=== PATIENT | female | born 1985 | race Asian ===

== ENCOUNTER 2021-03-16 07:36 | Inpatient (IN) | payer BC, SELFPAY ==
[~2021-03-16] VITALS: Ht 154.9 cm; Wt 58.5 kg
[2021-03-16 07:40] VITALS: BP_SYST 116
[2021-03-16] MEDS ORDERED: IPRATROPIUM BROM 0.5 MG/2.5 ML VIAL.NEB (ATROVENT) INH ONE ×2 (07:44→08:15)
[2021-03-16] MEDS ORDERED: MAGNESIUM SULFATE 1 GM/2 ML VIAL ONE (07:44)
--- NOTE | 2021-03-16 07:45 | NUR ---
Placed in room 7 . Placed on environmental inspector, blood pressure machine and pulse oximeter. To gown for exam. Side rails up. Report given to ANDRIY DEL VALLE.
[2021-03-16] MEDS ORDERED: methylPREDNISolone SOD SUCC/PF 62.5 MG/ML VIAL ONE (07:50)
--- NOTE | 2021-03-16 07:50 | NUR ---
ER at bedside examining patient.
[2021-03-16] MEDS ORDERED: ALBUTEROL SULFATE 0.083% 2.5 MG/3 ML VIAL.NEB INH ONE (08:15)
[2021-03-16] MEDS ORDERED: METHYLPREDNISOLONE SOD SUCC 40 MG/ML VIAL IVP ONE (08:15)
[2021-03-16] MEDS ORDERED: MAGNESIUM SULFATE 50 ML IV ONE (08:15)
--- NOTE | 2021-03-16 08:30 | NUR ---
LATE ENTRY PT COMES TO ER WITH DYSPNEA SINCE 0700 THIS AM, +ACCESSORY MUSCLE USE, TACHYPNIC AT 48 BREATHS/MIN. LS-WHEEZES WITH HISTORY OF ASTHMA AT 60% ON RA. PT PALE, SLIGHTLY DIAPHORETIC, IMMEDIATELY SL INSERTED-DR BONILLA AT BEDSIDE. AT BEDSIDE. STATES SHE STARTED FEELING SOB UPON WAKING UP, DID NOT GIVE HERSELF ANY BREATHING TREATMENTS PRIOR TO COMING. PT FULLY VACCINATED.
--- NOTE | 2021-03-16 09:20 | NUR ---
Notified ED Admitting regarding Dr. Garcia's request for admission/transfer. ED Admitting will contact insurance business analyst regarding this matter. per facesheet: [facility] ([facility])[3]
[2021-03-16 09:21] LABS: BASOPHILS # (AUTO) 0.1 K/uL (0.0-0.2); BASOPHILS % (AUTO) 0.4 % (0.0-2.0); EOSINOPHILS # (AUTO) 0.6 K/uL (0.0-0.4); EOSINOPHILS % (AUTO) 4.9 % (0.0-4.0); HEMATOCRIT 41.2 % (36-48); HEMOGLOBIN 13.4 g/dL (12.0-16.0); LYMPHOCYTES # (AUTO) 2.7 K/uL (1.0-5.5); LYMPHOCYTES % (AUTO) 21.9 % (20.5-51.5); MEAN CORPUSCULAR HEMOGLOBIN 30 pg (27-31); MEAN CORPUSCULAR HGB CONC 33 % (32-36); MEAN CORPUSCULAR VOLUME 90 fL (79.0-98.0); MONOCYTES # (AUTO) 0.4 K/uL (0.0-1.0); MONOCYTES % (AUTO) 3.3 % (1.7-9.3); NEUTROPHILS # (AUTO) 8.5 K/uL (1.8-7.7); NEUTROPHILS % (AUTO) 69.5 % (40.0-70.0); PLATELET COUNT (AUTO) 281 K/uL (130-430); RED BLOOD CELL COUNT(AUTO) 4.56 MIL/uL (4.2-6.2); RED CELL DISTRIBUTION WIDTH 13.1 % (9.0-15.0); WHITE BLOOD COUNT (AUTO) 12.2 K/uL (4.8-10.8)
[2021-03-16 09:28] LABS: ALBUMIN 3.4 g/dL (3.4-4.8); CREATININE 0.51 mg/dL (0.55-1.30); POTASSIUM 3.1 mmol/L (3.5-5.1); TOTAL BILIRUBIN 0.1 mg/dL (0.0-1.0)
--- NOTE | 2021-03-16 09:32 | NUR ---
PT LAYING IN BED, REPORTS FEELING BETTER. RESP EVEN AND UNLABORED, ON 02-@3L VIA NC AT 99%. VSS, WAITING FOR ER DISPOSITION.
--- NOTE | 2021-03-16 10:59 | NUR ---
ED Admitting did not call case manger so Dr. Garcia spoke to Christina, insurance collector, regarding this mater and Christina gave verbal auth for admission per Dr. Garcia.
--- NOTE | 2021-03-16 11:10 | NUR ---
DR ABDUL IN ROOM FOR EXAM , PT ADMITTED TO TELE.
[2021-03-16] MEDS ORDERED: ACETAMINOPHEN 325 MG TABLET PO PRN (11:15)
[2021-03-16] MEDS: D5/0.45 NS 1,000 ML IV SCH ×2 (11:15→23:17)
[2021-03-16] MEDS ORDERED: ONDANSETRON HCL 4 MG/2 ML VIAL IVP PRN (11:15)
--- NOTE | 2021-03-16 14:25 | NUR ---
PT HAD LUNCH BROUGHT IN BY , TOLERATED WELL.NO DIFFICUTY IN BREATHING. ON VIA NC @98%
[2021-03-16] MEDS: ALBUTEROL SULFATE 0.083% 2.5 MG/3 ML VIAL.NEB INH SCH (14:51)
[2021-03-16] MEDS: IPRATROPIUM BROM 0.5 MG/2.5 ML VIAL.NEB (ATROVENT) INH SCH (14:51)
--- NOTE | 2021-03-16 15:29 | NUR ---
NO ACUTE CHANGE IN CONDITION, PT USING CELL PHONE, CONVERSING WITH . VSS.
--- NOTE | 2021-03-16 15:45 | NUR ---
Patient will be admitted to care of DR ABDUL. Admitted to unit. Will go to room . Belongings list completed. Complete and up to date summary report printed. SBAR report to be given at bedside with opportunity for questions.
--- NOTE | 2021-03-16 15:50 | NUR ---
ADMISSION NOTE Received patient from ER via gurney. Patient admitted with diagnosis of . Patient is awake, alert, oriented X 4. Patient oriented to hospital room, call light, toileting, pain management and safety-teach back done. Patient informed that Savi will be her nurse and that their room number is 104A. Personal belongings checked and Belongings List documented. Call light within reach.
[2021-03-16 15:57] VITALS: BP_SYST 143
--- NOTE | 2021-03-16 18:45 | NUR ---
CLOSING NOTE Patient AxOx4 currently eating dinner in bed and respirations remain even and non-labored on 2 L NC. IV is patent and infusing fluids as ordered. Bed locked in lowest position and call light is within reach. Will endorse to night stocker RN.
[2021-03-16 21:00] VITALS: BP_SYST 135
[2021-03-16] MEDS ORDERED: PANTOPRAZOLE SODIUM 40 MG/VIAL (PROTONIX) IVP ONE (22:45)
[2021-03-16] MEDS: MONTELUKAST 10 MG TABLET PO SCH (22:47)
[2021-03-16] MEDS ORDERED: cefTRIAXone 1 GM IVPB PREMIX 50 ML IV ONE (23:13)
[2021-03-16] MEDS: cefTRIAXone 1 GM in D5W 50 ML IV SCH (23:16)
--- NOTE | 2021-03-17 | NUR ---
SOLU MEDROL 40 MG IVP was given at 2400 , it did not save to apr .
[2021-03-17] MEDS: ALBUTEROL SULFATE 0.083% 2.5 MG/3 ML VIAL.NEB INH SCH ×8 (00:53→23:28)
[2021-03-17] MEDS: IPRATROPIUM BROM 0.5 MG/2.5 ML VIAL.NEB (ATROVENT) INH SCH ×8 (00:54→23:28)
[2021-03-17 02:00] VITALS: BP_SYST 129
--- NOTE | 2021-03-17 02:35 | NUR ---
TYLENOL 650 MG po given for general pain & helpful / .
[2021-03-17] MEDS: METHYLPREDNISOLONE SOD SUCC 40 MG/ML VIAL IVP SCH ×2 (06:10→13:57)
[2021-03-17] MEDS: D5/0.45 NS 1,000 ML IV SCH (07:15)
[2021-03-17 08:38] LABS: HEMATOCRIT 38.6 % (36-48); HEMOGLOBIN 12.7 g/dL (12.0-16.0); LYMPHOCYTES # (AUTO) 0.8 K/uL (1.0-5.5); LYMPHOCYTES % (AUTO) 4.5 % (20.5-51.5); MEAN CORPUSCULAR HEMOGLOBIN 30 pg (27-31); MEAN CORPUSCULAR HGB CONC 33 % (32-36); MEAN CORPUSCULAR VOLUME 91 fL (79.0-98.0); MONOCYTES # (AUTO) 0.2 K/uL (0.0-1.0); MONOCYTES % (AUTO) 1.3 % (1.7-9.3); NEUTROPHILS # (AUTO) 15.8 K/uL (1.8-7.7); NEUTROPHILS % (AUTO) 94.2 % (40.0-70.0); PLATELET COUNT (AUTO) 316 K/uL (130-430); RED BLOOD CELL COUNT(AUTO) 4.25 MIL/uL (4.2-6.2); RED CELL DISTRIBUTION WIDTH 12.9 % (9.0-15.0)
[2021-03-17 08:44] LABS: WHITE BLOOD COUNT (AUTO) 16.8 K/uL (4.8-10.8)
[2021-03-17 08:54] LABS: ALANINE AMINOTRANSFERASE 14 U/L (12-78); ALBUMIN 3.4 g/dL (3.4-4.8); ANION GAP 10 (5-15); ASPARTATE AMINOTRANSFERASE 7 U/L (10-37); CALCIUM 8.4 mg/dL (8.4-11.0); CHLORIDE 106 mmol/L (98-107); CREATININE 0.49 mg/dL (0.55-1.30); GLUCOSE 142 mg/dL (70-99); PHOSPHORUS 2.6 mg/dL (2.7-4.5); POTASSIUM 4.2 mmol/L (3.5-5.1); SODIUM SERUM 143 mmol/L (136-145); TOTAL BILIRUBIN < 0.1 mg/dL (0.0-1.0); UREA NITROGEN, BLOOD 6 mg/dL (8-21)
[2021-03-17] MEDS: PANTOPRAZOLE SODIUM 40 MG/VIAL (PROTONIX) IVP SCH (08:57)
[2021-03-17 09:01] VITALS: BP_SYST 136
[2021-03-17 09:21] LABS: GFR AFRICAN AMERICAN 186 mL/min (>90)
[2021-03-17] MEDS ORDERED: NA PHOS 15 MM in NS 250 ML IV ONE (09:45)
--- NOTE | 2021-03-17 13:00 | NUR ---
BEDSIDE REPORT RECEIVED FROM KATARINA ASHRAF. PT IS AWAKE, ALERT, AND ORIENTED X4, VS STABLE, IV FLUIDS INFUSING, NO ACUTE DISTRESS, INDEPENDENT AND AMBULATORY. ASSUMING CARE FOR PT.
[2021-03-17 16:22] VITALS: BP_SYST 117
[2021-03-17] MEDS: MONTELUKAST 10 MG TABLET PO SCH (17:15)
--- NOTE | 2021-03-17 19:30 | NUR ---
PT REMAINS STABLE, NO ACUTE DISTRESS, SL, AMBULATORY. NO SIGNIFICANT CHANGES NOTED. REPORT GIVEN TO GREGORIA ASHRAF.
[2021-03-17] MEDS: cefTRIAXone 1 GM in D5W 50 ML IV SCH (22:32)
[2021-03-18] MEDS: ALBUTEROL SULFATE 0.083% 2.5 MG/3 ML VIAL.NEB INH SCH ×4 (03:47→15:00)
[2021-03-18] MEDS: IPRATROPIUM BROM 0.5 MG/2.5 ML VIAL.NEB (ATROVENT) INH SCH ×4 (03:47→15:00)
[2021-03-18 08:10] LABS: BASOPHILS # (AUTO) 0.1 K/uL (0.0-0.2); BASOPHILS % (AUTO) 0.3 % (0.0-2.0); EOSINOPHILS % (AUTO) 0.1 % (0.0-4.0); HEMATOCRIT 38.6 % (36-48); HEMOGLOBIN 12.7 g/dL (12.0-16.0); LYMPHOCYTES % (AUTO) 22.3 % (20.5-51.5); MEAN CORPUSCULAR HEMOGLOBIN 30 pg (27-31); MEAN CORPUSCULAR HGB CONC 33 % (32-36); MEAN CORPUSCULAR VOLUME 90 fL (79.0-98.0); MONOCYTES # (AUTO) 0.9 K/uL (0.0-1.0); MONOCYTES % (AUTO) 4.8 % (1.7-9.3); NEUTROPHILS # (AUTO) 13.1 K/uL (1.8-7.7); NEUTROPHILS % (AUTO) 72.5 % (40.0-70.0); PLATELET COUNT (AUTO) 329 K/uL (130-430); RED BLOOD CELL COUNT(AUTO) 4.27 MIL/uL (4.2-6.2); RED CELL DISTRIBUTION WIDTH 13.1 % (9.0-15.0); WHITE BLOOD COUNT (AUTO) 18.1 K/uL (4.8-10.8)
[2021-03-18 08:30] VITALS: BP_SYST 108
[2021-03-18 08:43] LABS: CALCIUM 8.5 mg/dL (8.4-11.0); CREATININE 0.5 mg/dL (0.55-1.30); POTASSIUM 3.6 mmol/L (3.5-5.1)
[2021-03-18] MEDS: PANTOPRAZOLE SODIUM 40 MG/VIAL (PROTONIX) IVP SCH (08:46)
--- NOTE | 2021-03-18 09:00 | NUR ---
DUE MEDICATION GIVEN ORDERED.
--- NOTE | 2021-03-18 09:26 | NUR ---
NOTES PATIENT DONE EATING BREAKFAST. PROTONIX IV GIVEN ON THE RT AC. FLUSHED WITH 10CC OF WATER.
--- NOTE | 2021-03-18 13:30 | NUR ---
DR FRANKO EDWARDS CAME ORDERED DISCHARGE HOME
[2021-03-18] MEDS ORDERED: MED4 PO (14:47)
[2021-03-18] MEDS ORDERED: MONT-40 PO (14:47)
[2021-03-18] MEDS ORDERED: BUDE6.9H INH (14:47)
--- NOTE | 2021-03-18 15:00 | NUR ---
SEEN BY DR GARRETT PULMONARY OK TO GIVE.
[2021-03-18 15:15] VITALS: BP_SYST 110
--- NOTE | 2021-03-18 15:47 | NUR ---
PATIENT LEFT IN STABLE CONDITION. WILLIAM CAME AND KEY OPERATOR THE PATIENT. DISCHARGE INSTRUCTION GIVEN REGARDING FOLLOW UP CARE WITH PCP IN ONE TO TWO WEEKS. INSTRUCTIONS ON MEDICATION INCLUDING THE INDICATION, DOSE, SIDE EFFECTS AND FREQUENCY. [facility] I D BAND REMOVED. IV ACCESS REMOVED. DISCHRGE INSTRUCTIONS SIGNED AND SAID I AM VERY HAPPY WITH THE CARE, THAT I HAVE.
[2021-03-18 16:54] VITALS: BP_SYST 110; BP_SYST 111
== END 2021-03-18 15:17 | disposition home or self-care (01) | DRG 189 ==
LOC: SED 07:36 → STU 11:06 → SMU 03-17 09:56
PROVIDERS: ADMIT Preventive Medicine Preventive Medicine/Occupational Environmental Medicine; ATTEND Preventive Medicine Preventive Medicine/Occupational Environmental Medicine
DX: J96.01 Acute respiratory failure with hypoxia (principal); J45.902 Unspecified asthma with status asthmaticus; E87.6 Hypokalemia; E83.39 Other disorders of phosphorus metabolism; E83.52 Hypercalcemia; E83.41 Hypermagnesemia; D72.829 Elevated white blood cell count, unspecified; Z20.822 Contact with and (suspected) exposure to COVID-19
CPT/HCPCS: 36415; 71045; 80048; 80053; 83735; 83880; 84100; 85025; 93005; 94640; 94760; 96374; 96375; 99291; C9113; G0378; J0696; J1030; J2930; J3475; J7050; J7060; J7613

== ENCOUNTER 2021-04-02 01:44 | Emergency (ER) | payer BC, SELFPAY ==
[~2021-04-02] VITALS: Ht 154.9 cm; Wt 61.2 kg
[~2021-04-02 01:44] MED LIST: BUDE6.9H INH; MED4 PO; MONT-40 PO
[2021-04-02 01:48] VITALS: BP_SYST 137
--- NOTE | 2021-04-02 01:50 | NUR ---
pt to bed 6
--- NOTE | 2021-04-02 02:02 | NUR ---
Pt awake a/o x4. speech clear and coherent. 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 pt denies chest pain. states she was seen 2 weeks ago for same symptoms. states she took inhaler and singulair with no relief. pt placed on o2 sat 93% room air. denies n/v/d/fever. RT paged. awaiting for MD bush. will continue to monitor.
--- NOTE | 2021-04-02 02:31 | NUR ---
Alejandrina Garcia at bedside speaking with pt
[2021-04-02] MEDS ORDERED: IPRATROPIUM BROM 0.5 MG/2.5 ML VIAL.NEB (ATROVENT) INH ONE (02:45)
[2021-04-02] MEDS ORDERED: ALBUTEROL SULFATE 0.083% 2.5 MG/3 ML VIAL.NEB INH ONE (02:45)
[2021-04-02] MEDS ORDERED: DEXAMETHASONE SOD PHOSPHATE 10 MG/ML VIAL IVP ONE (02:45)
[2021-04-02] MEDS ORDERED: MAGNESIUM SULFATE 50 ML IV ONE (02:45)
--- NOTE | 2021-04-02 03:38 | NUR ---
xray at bedside
--- NOTE | 2021-04-02 04:44 | NUR ---
Dr Garcia at bedside speaking with pt and pts family
[2021-04-02] MEDS ORDERED: ALBMDI INH (04:48)
[2021-04-02] MEDS ORDERED: PRED20TA PO (04:48)
[2021-04-02] MEDS ORDERED: LORA10TA7 PO (04:48)
--- NOTE | 2021-04-02 05:04 | NUR ---
Pt discharged. Pt awake a/o x4. aci reviewed with pt and pts family, verbalized understanding. to follow up with pmd within the next 2-3 days or return to ed if condition worsens. rx to be filled. to follow up with pmd within the next 2-3 days or return to ed if condition worsens. vs stable. iv d/c'd with no s/sx of complications noted, iv catheter intact. ambulatory with steady gait unassisted. nad.
[2021-04-02 05:05] VITALS: BP_SYST 113
== END 2021-04-02 05:05 | disposition home or self-care (01) ==
LOC: SED 01:44
DX: J45.901 Unspecified asthma with (acute) exacerbation (principal); Z79.899 Other long term (current) drug therapy
CPT/HCPCS: 71045; 94640; 96365; 96366; 96375; 99284; J1100; J3475; J7613

== ENCOUNTER 2021-12-30 11:54 | Emergency (ER) | payer BC ==
[~2021-12-30] VITALS: Ht 154.9 cm; Wt 63.5 kg
[~2021-12-30 11:54] MED LIST changes: +ALBMDI INH; +LORA10TA7 PO; +PRED20TA PO
[2021-12-30 12:55] VITALS: BP_SYST 135
--- NOTE | 2021-12-30 13:07 | NUR ---
Patient to ER bed 7 to gown for evaluation. Side rails up. Report given to ANDRIY BRADLEY.
[2021-12-30 13:15] LABS: BASOPHILS # (AUTO) 0.1 K/uL (0.0-0.2); BASOPHILS % (AUTO) 1.4 % (0.0-2.0); EOSINOPHILS # (AUTO) 0.8 K/uL (0.0-0.4); HEMATOCRIT 40.7 % (36-48); LYMPHOCYTES # (AUTO) 2.2 K/uL (1.0-5.5); LYMPHOCYTES % (AUTO) 27.6 % (20.5-51.5); MEAN CORPUSCULAR HEMOGLOBIN 31 pg (27-31); MEAN CORPUSCULAR HGB CONC 34 % (32-36); MEAN CORPUSCULAR VOLUME 90 fL (79.0-98.0); MONOCYTES # (AUTO) 0.6 K/uL (0.0-1.0); MONOCYTES % (AUTO) 7.7 % (1.7-9.3); NEUTROPHILS # (AUTO) 4.2 K/uL (1.8-7.7); NEUTROPHILS % (AUTO) 53.3 % (40.0-70.0); PLATELET COUNT (AUTO) 359 K/uL (130-430); RED BLOOD CELL COUNT(AUTO) 4.53 MIL/uL (4.2-6.2); RED CELL DISTRIBUTION WIDTH 13.5 % (9.0-15.0)
[2021-12-30 13:50] LABS: BILIRUBIN,URINE NEGATIVE (NEGATIVE); BLOOD, URINE 3+ (NEGATIVE); CLARITY/URINE SL CLOUDY (CLEAR); COLOR,URINE YELLOW (YELLOW); GLUCOSE,URINE NEGATIVE (NEGATIVE); KETONES,URINE TRACE (NEGATIVE); LEUKOCYTE ESTERASE ,URINE NEGATIVE (NEGATIVE); NITRITE, URINE NEGATIVE (NEGATIVE); PROTEIN URINE NEGATIVE (NEGATIVE)
[2021-12-30 13:57] LABS: BACTERIA,URINE RARE /HPF (None Seen); MUCUS,URINE 1+ /LPF (None Seen); RBC,URINE 20-50 /HPF (0-3); WBC,URINE 0-3 /HPF (0-3)
--- NOTE | 2021-12-30 14:00 | NUR ---
PT BIB SELF TO ER FROM HOME. CC VAGINAL BLEEDING. PT NOTES BLEEDING FOR PAST 3 DAYS. PT STATES POSITIVE TEST. AAOX3, SKIN INTACT PT NOTES CONTINUAL BLEEDING. DENIES NVD, DENIES SOB, NO NEOURO DEFICIT.
--- NOTE | 2021-12-30 14:26 | NUR ---
ER at bedside examining patient.
[2021-12-30] MEDS ORDERED: ALBU8.5H8 INH (15:00)
[2021-12-30 15:16] VITALS: BP_SYST 129
--- NOTE | 2021-12-30 15:24 | NUR ---
Patient given written and verbal discharge instructions and verbalizes understanding. ER MD discussed with patient the results and treatment provided. Patient in stable condition. ID arm band removed. Rx of ALBUTEROL given. Patient educated on pain management and to follow up with PMD. Pain Scale 0/10. Opportunity for questions provided and answered. Medication side effect fact sheet provided.
== END 2021-12-30 15:24 | disposition home or self-care (01) ==
LOC: SED 11:54
DX: O20.0 Threatened abortion (principal); Z3A.01 Less than 8 weeks gestation of pregnancy; Z79.899 Other long term (current) drug therapy
CPT/HCPCS: 36415; 76801; 76817; 81000; 84702; 85025; 86900; 86901; 99284